=== PATIENT | male | born 1985 | race Hispanic/Latino ===

== ENCOUNTER 2020-04-27 17:07 | Emergency (ER) | payer BC ==
[~2020-04-27] VITALS: Ht 172.7 cm; Wt 73.6 kg
[2020-04-27 19:55] LABS: HEMOGLOBIN 13.6 g/dl (14.0-18.0); IMMATURE GRANULOCYTES 0.2 % (0.0-5.0); MEAN CELL VOLUME 88.3 fL CALC (80.0-100.0); NEUT# 6.02 thou/uL (1.82-7.42); RED BLOOD COUNT 4.53 mill/uL (4.70-6.10)
[2020-04-27 20:24] LABS: ALBUMIN 4.7 g/dL (3.2-5.0); ALKALINE PHOSPHATASE 96 u/l (38-126); ANION GAP 13 (6-22 (CALC)); BILIRUBIN, TOTAL 0.5 mg/dL (0.0-1.4); BUN 25 mg/dL (9-20); BUN/CREATININE RATIO 26 (12-20 (CALC)); CARBON DIOXIDE 25 mmol/l (22-30); CHLORIDE 103 mmol/l (95-108); GFR > 60 ML/MIN (>=60 (CALC)); GFR FOR AFR.AMER. > 60 ML/MIN (>=60 (CALC)); POTASSIUM 4.4 mmol/l (3.5-5.1); SODIUM 137 mmol/l (137-146); TOTAL PROTEIN 8.5 g/dL (6.3-8.2)
[2020-04-27 20:31] LABS: SGOT/AST 47 u/l (17-59)
[2020-04-27 21:34] LABS: URINE BILIRUBIN - DIPSTICK NEGATIVE (NEGATIVE); URINE BLOOD DIPSTICK NEGATIVE (NEGATIVE); URINE COLOR YELLOW; URINE GLUCOSE - DIPSTICK NEGATIVE (NEGATIVE); URINE KETONE NEGATIVE (NEGATIVE); URINE LEUK ESTERASE NEGATIVE (NEGATIVE); URINE NITRITE - DIPSTICK NEGATIVE (Negative); URINE PH 5.5 (4.5-8.0); URINE PROTEIN - DIPSTICK NEGATIVE (NEG-TRACE); URINE SPECIFIC GRAVITY 1.015; URINE UROBILINOGEN - DIPSTICK 0.2 E.U./dL (0.2)
[2020-04-27] MEDS ORDERED: TORADOL PO (21:57)
[2020-04-27 22:20] VITALS: BP 134/77
== END 2020-04-27 22:20 | disposition home or self-care (01) | DRG 556 ==
LOC: ED 17:07
PROVIDERS: Family Medicine
DX: M25.511 Pain in right shoulder (principal); R07.81 Pleurodynia; M54.6 Pain in thoracic spine; M79.651 Pain in right thigh; W11.XXXA Fall on and from ladder, initial encounter; Y93.H2 Activity, gardening and landscaping; Y92.007 Garden or yard of unspecified non-institutional (private) residence as the place of occurrence of the external cause
CPT/HCPCS: Q9967

== ENCOUNTER 2020-08-04 16:34 | Emergency (ER) | payer BC ==
[~2020-08-04] VITALS: Ht 172.7 cm; Wt 170.0 kg
[~2020-08-04 16:34] MED LIST: TORADOL PO
[2020-08-04] MEDS ORDERED: HYDROCO/APAP1 TA9 PO (18:08)
[2020-08-04 18:10] VITALS: BP 137/87
== END 2020-08-04 18:10 | disposition home or self-care (01) | DRG 159 ==
LOC: ED 16:34
DX: K03.81 Cracked tooth (principal)

== ENCOUNTER 2024-08-10 16:27 | Emergency (ER) | payer BC ==
[~2024-08-10] VITALS: Ht 172.7 cm; Wt 77.0 kg
[~2024-08-10 16:27] MED LIST changes: +HYDROCO/APAP1 TA9 PO
[2024-08-10 16:39] VITALS: BP 128/79
[2024-08-10 16:45] VITALS: BP 116/80
[2024-08-10 17:01] VITALS: BP 106/68
[2024-08-10 17:15] VITALS: BP 116/67
[2024-08-10] MEDS ORDERED: TRAMADOL HYDROC50 M1 PO (17:29)
[2024-08-10 17:30] VITALS: BP 113/74
[2024-08-10] MEDS ORDERED: TORADOL PO (17:32)
[2024-08-10 17:50] VITALS: BP 113/74
== END 2024-08-10 17:50 | disposition home or self-care (01) | DRG 605 ==
LOC: ED 16:27
DX: S80.11XA Contusion of right lower leg, initial encounter (principal); S80.811A Abrasion, right lower leg, initial encounter; S93.401A Sprain of unspecified ligament of right ankle, initial encounter; V86.55XA Driver of 3- or 4- wheeled all-terrain vehicle (ATV) injured in nontraffic accident, initial encounter